=== PATIENT | male | born 1950 | race Caucasian/White ===

== ENCOUNTER 2018-04-15 04:50 | Inpatient (IN) | payer MEDICARE, BC ==
[2018-04-15] VITALS (28 sets, daily range): BP systolic 98–136; BP diastolic 54–80
[~2018-04-15] VITALS: Ht 177.8 cm; Wt 86.6 kg
--- NOTE | 2018-04-15 04:55 | NUR ---
PT BIBRA FROM [facility] FOR SOB, 85% O2 ON 15L NRB, GIVEN BREATHING TX JUNIOR ART DIRECTOR; PT AAOX3, PT ON MONITOR, PT NOTED SOB, MD AT RT AT BEDSIDE FOR EVAL
--- NOTE | 2018-04-15 05:00 | NUR ---
PT REC'D ON BREATHING TX MASK AT 6LPM. PT APPEARED WITH TACHYCARDIA, TACHYPNEA, AND ACCESSORY MUSCLE USAGE. PT AWAKE AND ALERT AND UNCOMFORTABLE. BS ARE EXPIRATORY WHEEZES THROUGHOUT ALL LUNG SANTOS. PT PLACED ON BIPAP PER MD REQUEST ON NOTED SETTINGS CHARTED. ALARMS ARE SET AND AUDIBLE. BIPAP PLUGGED INTO RED OUTLET. AMBU BAG BEDSIDE. WILL CONTINUE TO MONITOR. ABG TO BE TAKEN IN 30 MINUTES Addendum: 04/15/18 at 0516 by VANDA KINNEY RT Amended: Links added.
[2018-04-15] MEDS ORDERED: ACETAMINOPHEN 650 MG/SUPP.RECT RC ONE ×2 (05:10→05:30)
--- NOTE | 2018-04-15 05:11 | NUR ---
RECTAL TEMP REPORTED TO DR. NAQVI WITH ORDERS TO GIVE TYLENOL MD, GIVEN ORDERED
[2018-04-15] MEDS ORDERED: DILTIAZEM HCL 25 MG IV ONE ×3 (05:12→05:50)
[2018-04-15 05:14] LABS: BASOPHILS % (AUTO) 1.2 % (0.0-2.0); EOSINOPHILS % (AUTO) 0.3 % (0.0-6.0); HEMATOCRIT 34 % (39-51); HEMOGLOBIN 10.7 g/dL (13.5-17.5); LYMPHOCYTES # (AUTO) 49.4 /CMM (0.8-4.8); LYMPHOCYTES % (AUTO) 61.9 % (20.0-44.0); MEAN CORPUSCULAR HGB CONC 32 g/dl (31.0-36.0); MEAN CORPUSCULAR VOLUME 99 fL (80-96); MONOCYTES % (AUTO) 1.2 % (2.0-12.0); NEUTROPHILS # (AUTO) 28.3 /CMM (1.8-8.9); NEUTROPHILS % (AUTO) 35.4 % (43.0-81.0); PLATELET COUNT (AUTO) 108 /CMM (150-450); RED BLOOD CELL COUNT(AUTO) 3.43 MIL/uL (4.5-6.0)
[2018-04-15 05:23] LABS: CALCIUM, SERUM 7.4 mg/dL (8.5-10.1); CARBON DIOXIDE 33 mmol/L (21-32); CHLORIDE 99 mmol/L (98-107); CREATININE 1.5 mg/dL (0.6-1.3); GLUCOSE 285 mg/dL (74-106); POTASSIUM 4.6 mmol/L (3.5-5.1); SODIUM SERUM 139 mmol/L (136-145); UREA NITROGEN, BLOOD 22 mg/dL (7-18)
[2018-04-15] MEDS ORDERED: DILTIAZEM HCL 50 MG IV IV ONE (05:30)
[2018-04-15] MEDS ORDERED: ACETAMINOPHEN 325 MG TABLET PO ONE (05:30)
[2018-04-15] MEDS ORDERED: DILTIAZEM HCL IV 125 MG in IV NS 0.9% 100 ML IV PRN (05:30)
--- NOTE | 2018-04-15 05:30 | NUR ---
BIPAP SETTINGS: RATE OF 16, 15/5 50% O2
--- NOTE | 2018-04-15 05:30 | NUR ---
BLOOD COLLECTED THROUGH PICC LINE AND URINE COLLECTED VIA F/C, SPECIMEN GIVEN TO MANAGER ADMINISTRATIVE.
[2018-04-15 05:33] LABS: WHITE BLOOD COUNT (AUTO) 79.9 K/uL (4.3-11.0)
[2018-04-15 05:37] LABS: ALANINE AMINOTRANSFERASE 22 U/L (12-78); ALBUMIN 2.2 g/dL (3.4-5.0); ALKALINE PHOSPHATASE 253 U/L (46-116); ASPARTATE AMINOTRANSFERASE 37 U/L (15-37); B-TYPE NATRIURETIC PEPTIDE 16280 PG/ML (0-125); BILIRUBIN,DIRECT 0.2 mg/dL (0.0-0.2); BILIRUBIN,TOTAL 0.5 mg/dL (0.2-1.0); TOTAL PROTEIN, SERUM 5.7 g/dL (6.4-8.2)
--- NOTE | 2018-04-15 05:41 | NUR ---
PT STARTED ON CARDIZEM 125MG DRIP, STARTED ON 5MG
[2018-04-15] MEDS ORDERED: AZTREONAM 1 G VIAL ONE (05:58)
[2018-04-15] MEDS ORDERED: AZTREONAM 1 G in IV NS 0.9% 100 ML IV ONE (06:00)
[2018-04-15] MEDS ORDERED: ACETAMINOPHEN 650 MG/SUPP.RECT RC PRN (06:00)
[2018-04-15] MEDS ORDERED: MAGNESIUM HYDROXIDE 30 ML UDC PO PRN (06:00)
[2018-04-15] MEDS ORDERED: MAG HYDROX/AL HYDROX/SIMETH 30 ML UDC PO PRN (06:00)
[2018-04-15] MEDS ORDERED: LEVOFLOXACIN 750 MG /D5W 150ML PIGGYBACK IV ONE (06:00)
[2018-04-15] MEDS ORDERED: ALBUTEROL FS 2.5 MG/3 ML VIAL.NEB NEB PRN (06:00)
[2018-04-15] MEDS ORDERED: ONDANSETRON HCL/PF 4 MG/2 ML VIAL IVP PRN (06:00)
[2018-04-15] MEDS ORDERED: ACETAMINOPHEN 325 MG TABLET PO PRN (06:00)
[2018-04-15 06:05] LABS: ABG BASE EXCESS 9.8 mmol/L; ABG OXYGEN SATURATION 98.7 % (92.0-98.5); ABG PCO2 36.1 mmHg (35.0-45.0); ABG PO2 242.4 mmHg (75.0-100.0); AaDO2 434.5 mmHg; COHb 0.6 % (0.5-1.5); MetHb 0.6 % (0.0-1.5); O2Hb 97.5 % (94.0-97.0); SITE, ABG Right Radial
--- NOTE | 2018-04-15 06:14 | NUR ---
ABG TAKEN AND RESULTS GIVEN TO MD. NO CHANGES MADE, EXCEPT FOR O2 TITRATION TO 50% FIO2. WILL CONTINUE TO MONITOR. Addendum: 04/15/18 at 0614 by VANDA KINNEY RT Amended: Links added.
[2018-04-15 06:26] LABS: BAND % (MANUAL) 9 % (0.0-5.0); BASOPHILS % (MANUAL) 1 % (0.0-2.0); BLASTS, MANUAL % 4 % (0-0); LYMPHOCYTES % (MANUAL) 4 % (16-48); METAMYELOCYTES % 1 % (0-0); MONOCYTES % (MANUAL) 2 % (0-11.0); MYELOCYTES % 1 % (0-0); NEUTROPHILS % (MANUAL) 31 (42-76); PROMYELOCYTES % 28 % (0-0); REACTIVE LYMPHOCYTES 19 % (0-0)
[2018-04-15] MEDS ORDERED: FUROSEMIDE 40 MG/4 ML VIAL IV ONE (06:30)
[2018-04-15] MEDS ORDERED: DEXTROSE 50%-WATER 50 ML DISP.SYRIN IV PRN (06:30)
[2018-04-15] MEDS ORDERED: LEVOFLOXACIN 750 MG /D5W 150ML 150 ML IV ONE (06:58)
[2018-04-15] MEDS ORDERED: FUROSEMIDE 40 MG/4 ML VIAL IV SCH (07:00)
[2018-04-15] MEDS ORDERED: INSU100V27 SQ (07:09)
[2018-04-15] MEDS ORDERED: ASPI-1169 PO (07:09)
[2018-04-15] MEDS ORDERED: INSU100V37 SQ (07:09)
[2018-04-15] MEDS ORDERED: BUDE10.2 INH (07:09)
[2018-04-15] MEDS ORDERED: ACET-868 PO (07:09)
[2018-04-15] MEDS ORDERED: CHOL200026 PO (07:09)
[2018-04-15] MEDS ORDERED: PANT40TA2 PO (07:09)
[2018-04-15] MEDS ORDERED: PITA4TAB PO (07:09)
[2018-04-15] MEDS ORDERED: PARO40TA PO (07:09)
[2018-04-15] MEDS ORDERED: PRED5TAB48 PO (07:09)
[2018-04-15] MEDS ORDERED: ASCO500T9 PO (07:09)
[2018-04-15] MEDS ORDERED: ZINC220T PO (07:09)
[2018-04-15] MEDS ORDERED: FLUC100T8 PO (07:09)
[2018-04-15] MEDS ORDERED: ALLO100T PO (07:09)
[2018-04-15] MEDS ORDERED: MULT-213 PO (07:09)
[2018-04-15] MEDS ORDERED: FURO40TA5 PO (07:09)
[2018-04-15] MEDS ORDERED: CARV25TA2 PO (07:09)
[2018-04-15] MEDS ORDERED: IPRA3AMP23 IH (07:09)
[2018-04-15] MEDS ORDERED: LISI40TA4 PO (07:09)
[2018-04-15] MEDS ORDERED: MYCO500T PO (07:09)
--- NOTE | 2018-04-15 07:37 | NUR ---
REPORT GIVEN TO JACY MACKENZIE FOR CARROL
[2018-04-15] MEDS ORDERED: FUROSEMIDE 40 MG/4 ML VIAL ONE (07:56)
--- NOTE | 2018-04-15 07:57 | NUR ---
RT NOTE RECEIVED PT ON BIPAP. SETTINGS PRESCRIBED. PT AWAKE AND ALERT. PT PLACED ON NC AT 3L. PT TOLERATING WELL. SPO2 94%. HR 113. JACY FERNANDES NOTIFIED. NO SOB NO DISTRESS NOTED. Addendum: 04/15/18 at 0759 by PAULIE WHITTINGTON RT Amended: Links added.
--- NOTE | 2018-04-15 08:00 | NUR ---
PROVINCE ARCHIVIST ADMITTING NOTES: RECEIVED PT FROM ER NURSE IN STABLE CONDITION. PT IS A/O X3 WITH PERIODS OF CONFUSION. NO SOB OR ACUTE SIGNS OF DISTRESS NOTED. BREATHING IS EVEN AND UNLABORED. PT PLACED ON 2L VIA NC AND SATING WELL AT 98%. RIGHT UPPER ARM PICC LINE NOTED TO BE PATENT AND INTACT. CARDIZEM CURRENTLY INFUSING FROM ER. WILL D/C AND BEGIN AMIO DRIP. ODEN CATHETER NOTED TO BE PATENT AND DRAINING CLEAR YELLOW URINE. NO BELONGINGS NOTED WITH PT AT THIS TIME. BED IN LOW LOCKED POSITION, SIDE RAILS UP X2, CALL LIGHT WITHIN REACH. WILL CONTINUE TO MONITOR AND BEGIN ADMISSION PROCESS
--- NOTE | 2018-04-15 08:08 | NUR ---
PT CURRENTLY SINUS TACH ON THE TELE MONITOR WITH A HR OF 103
[2018-04-15 08:53] LABS: THYROID STIMULATING HORMONE 29.443 uIU/mL (0.358-3.74)
[2018-04-15] MEDS ORDERED: AMIODARONE 900 MG in IV D5W 500 ML IV PRN (09:00)
[2018-04-15] MEDS ORDERED: AMIODARONE 150 MG in IV D5W 100 ML IV ONE (09:00)
[2018-04-15] MEDS ORDERED: PANTOPRAZOLE 40 MG VIAL IV SCH (09:00)
[2018-04-15 09:27] LABS: ABG BASE EXCESS 9.9 mmol/L; ABG OXYGEN SATURATION 92.2 % (92.0-98.5); ABG PCO2 46.4 mmHg (35.0-45.0); ABG PH 7.487 (7.350-7.450); ABG PO2 67.8 mmHg (75.0-100.0); AaDO2 106.1 mmHg; COHb 0.9 % (0.5-1.5); MetHb 0.8 % (0.0-1.5); O2Hb 90.6 % (94.0-97.0); SITE, ABG Right Radial; VENT MODE, BG 3LNC
[2018-04-15 10:03] LABS: PHOSPHORUS 3.6 mg/dL (2.5-4.9)
[2018-04-15 10:15] LABS: MAGNESIUM 1.3 mg/dL (1.8-2.4)
[2018-04-15] MEDS ORDERED: AMIODARONE 900 MG in IV D5W 482 ML IV PRN (10:30)
[2018-04-15] MEDS: IPRATROPIUM NEB FS 0.5 MG/2.5 ML AMPUL.NEB NEB SCH ×4 (11:07→23:49)
--- NOTE | 2018-04-15 11:40 | NUR ---
COCOA PRESS OPERATOR NOTES: MD MERARY COVARRUBIAS TRAVEL WRITER AT BEDSIDE AND UPDATED ON PT'S CONDITION. SEPSIS PROTOCOL INITIATED. VSS AT THIS TIME.
[2018-04-15] MEDS ORDERED: IV NS 0.9% 1,000 ML IV PRN (12:00)
[2018-04-15] MEDS: FUROSEMIDE 40 MG/4 ML VIAL IV SCH ×3 (12:16→19:50)
[2018-04-15] MEDS: BLOOD SUGAR DIAGNOSTIC 1 EACH STRIP IN SCH ×3 (12:16→23:43)
[2018-04-15] MEDS: NS 0.9% IV PRN ×4 (12:31→20:27)
[2018-04-15] MEDS: INSULIN REGULAR, HUMAN 100 UNIT/ML 3 ML VIAL SQ PRN ×3 (12:32→18:23)
--- NOTE | 2018-04-15 12:50 | NUR ---
STRAIGHT EDGER NOTES: CRITICAL BS PT HAS A CRITICAL BS OF 443. CRITICAL VALUE PROTOCOL INITIATED. 10 UNITS OF INSULIN GIVEN, SATISH MADE AWARE. TELEPHONE ORDER GIVEN TO ADMINISTER AN EXTRA 10 UNITS.
[2018-04-15] MEDS ORDERED: AZTREONAM 1 G in IV NS 0.9% 100 ML IV SCH (13:00)
--- NOTE | 2018-04-15 13:49 | NUR ---
RADIO TALK SHOW HOST NOTES: CODE STATUS PT'S PERSONAL BLOCKER AND CUTTER CONTACT LENS ASHLIE AT BEDSIDE. PER CM, PT HAS A POLST AND WISHES TO BE DNR/DNI. POLST FORM TO BE FAXED TO UNIT. ASHLIE MADE AWARE THAT PT' WILL REMAIN FC UNTIL THEN
[2018-04-15] MEDS ORDERED: MEROPENEM 1 G in IV NS 0.9% 100 ML IV ONE (14:00)
--- NOTE | 2018-04-15 15:20 | NUR ---
RIB MATCHER AND FITTER NOTES: ADVANCED DIRECTIVE A FAX OF PT'S ADVANCED DIRECTIVES RECEIVED HOWEVER UNABLE TO TRANSCRIBE WRITING DUE TO FAX QUALITY. PT'S CONTACTED HOWEVER NO RESPONSE.
[2018-04-15 15:26] LABS: APPEARANCE,URINE SL CLOUDY (CLEAR); BILIRUBIN,URINE NEGATIVE (NEGATIVE); BLOOD, URINE 3+ Ery/uL (NEGATIVE); COLOR,URINE YELLOW (YELLOW); KETONES,URINE NEGATIVE (NEGATIVE); LEUKOCYTE ESTERASE ,URINE NEGATIVE (NEGATIVE); NITRITE, URINE NEGATIVE (NEGATIVE); PROTEIN,URINE NEGATIVE (NEGATIVE); UGLUCOSE 1+ mg/dL (NEGATIVE); UROBILINOGEN,URINE 0.2 EU/dL (0.2)
[2018-04-15 15:29] LABS: ALBUMIN 1.9 g/dL (3.4-5.0); BILIRUBIN,DIRECT 0.2 mg/dL (0.0-0.2); BILIRUBIN,TOTAL 0.4 mg/dL (0.2-1.0); TOTAL PROTEIN, SERUM 4.9 g/dL (6.4-8.2)
[2018-04-15 15:36] LABS: SQUAMOUS EPITHELIAL CELL,UR Rare /HPF (None Seen); WBC,URINE 0-2 /HPF (0-3)
[2018-04-15 15:37] LABS: BACTERIA,URINE RARE /HPF (None Seen)
[2018-04-15] MEDS ORDERED: Z GUARD REMEDY 2 OZ OINT TP PRN (16:00)
--- NOTE | 2018-04-15 16:00 | NUR ---
BRICK UNLOADER TENDER NOTES: CRITICAL LACTIC (2.6) PT HAS A CRITICAL LACTIC ACID OF 2.6. SATISH DRIER TRANSFER CAR OPERATOR MADE AWARE. PT RECEIVED IV BOLUS. NO NEW ORDERS AT THIS TIME. VSS
[2018-04-15] MEDS: Magnesium 1GM/D5W 100ML PREMIX 100 ML IV SCH ×2 (18:24→19:47)
[2018-04-15] MEDS ORDERED: Magnesium 1GM/D5W 100ML PREMIX PIGGYBACK IV ONE (19:00)
--- NOTE | 2018-04-15 19:26 | NUR ---
JAMMER HOOKER CLOSING NOTES: PT REMAINS STABLE. ANOTHER CALLED MADE TO ASHLIE FOR COPY OF ADVANCE DIRECTIVE. NO RESPONSE. ENDORSED TO [place]RA[place] FOR CARROL AND CONTINUED F/U
--- NOTE | 2018-04-15 20:00 | NUR ---
Received patient AAO X 3.VS stable.Respiration even and unlabored.With O2 3LNC on SPO2 100%. SR with BBB per tele monitoring.Amiodarone gtt 0.5 mg/min infusing via AMANDA PICC Line.Site intact. Moderate urine output from lasix.Multiple skin issues dressing C/D/I.Denies pain or any discomfort. Turned and repositioned.Continue monitoring.
[2018-04-15] MEDS: MEROPENEM 1 G in IV NS 0.9% 100 ML IV SCH (21:04)
[2018-04-16] VITALS (29 sets, daily range): BP systolic 87–129; BP diastolic 35–91
--- NOTE | 2018-04-16 | NUR ---
Patient incontinent of soft stools.Perineal care done.Bed bath done and complete linens changed. Turned and repositioned.FSBS 112.Snack given per request.Turned and repositioned.
[2018-04-16] MEDS ORDERED: METRONIDAZOLE 500MG/ NS 100ML 100 ML IV ONE ×2 (01:24→06:14)
[2018-04-16] MEDS: METRONIDAZOLE 500MG/ NS 100ML 500 MG in PREMIX 1 EA IV SCH ×4 (01:28→17:20)
--- NOTE | 2018-04-16 01:30 | NUR ---
Vancocin HCL PO not administered.Not available.Per After Hours PharmacistIVONNE not to mix it just wait for AM pharmacist.Anyway patient is on Flagyl.
[2018-04-16] MEDS: IPRATROPIUM NEB FS 0.5 MG/2.5 ML AMPUL.NEB NEB SCH ×6 (03:18→23:47)
[2018-04-16] MEDS: MEROPENEM 1 G in IV NS 0.9% 100 ML IV SCH ×3 (04:09→21:21)
[2018-04-16 04:49] LABS: BASOPHILS # (AUTO) 0.2 /CMM (0.0-0.2); BASOPHILS % (AUTO) 0.4 % (0.0-2.0); EOSINOPHILS % (AUTO) 0.1 % (0.0-6.0); HEMATOCRIT 27 % (39-51); HEMOGLOBIN 8.8 g/dL (13.5-17.5); LYMPHOCYTES # (AUTO) 21.7 /CMM (0.8-4.8); LYMPHOCYTES % (AUTO) 54.6 % (20.0-44.0); MEAN CORPUSCULAR HGB CONC 32 g/dl (31.0-36.0); MEAN CORPUSCULAR VOLUME 97 fL (80-96); MONOCYTES # (AUTO) 0.4 /CMM (0.1-1.30); MONOCYTES % (AUTO) 1.1 % (2.0-12.0); NEUTROPHILS # (AUTO) 17.4 /CMM (1.8-8.9); NEUTROPHILS % (AUTO) 43.8 % (43.0-81.0); PLATELET COUNT (AUTO) 63 /CMM (150-450); RED BLOOD CELL COUNT(AUTO) 2.81 MIL/uL (4.5-6.0)
[2018-04-16 05:18] LABS: ALBUMIN 1.9 g/dL (3.4-5.0); BILIRUBIN,TOTAL 0.6 mg/dL (0.2-1.0); CALCIUM, SERUM 7.2 mg/dL (8.5-10.1); CREATININE 1.3 mg/dL (0.6-1.3); MAGNESIUM 1.5 mg/dL (1.8-2.4); PHOSPHORUS 2.8 mg/dL (2.5-4.9); POTASSIUM 2.9 mmol/L (3.5-5.1)
[2018-04-16] MEDS: LEVOFLOXACIN 750 MG /D5W 150ML 750 MG in PREMIX 1 EA IV SCH (05:30)
[2018-04-16 05:38] LABS: WHITE BLOOD COUNT (AUTO) 39.7 K/uL (4.3-11.0)
[2018-04-16] MEDS: BLOOD SUGAR DIAGNOSTIC 1 EACH STRIP IN SCH ×3 (05:44→17:20)
[2018-04-16] MEDS: VANCOMYCIN HCL 125 MG/2.5 ML ORAL.SUSP PO SCH ×4 (06:00→17:20)
[2018-04-16 06:03] LABS: BAND % (MANUAL) 12 % (0.0-5.0); LYMPHOCYTES % (MANUAL) 50 % (16-48); MONOCYTES % (MANUAL) 2 % (0-11.0); NEUTROPHILS % (MANUAL) 30 (42-76)
[2018-04-16 06:04] LABS: BLASTS, MANUAL % 6 % (0-0)
[2018-04-16] MEDS ORDERED: POTASSIUM CHLORIDE 20 MEQ TAB.PRT.SR PO ONE (06:30)
--- NOTE | 2018-04-16 06:35 | NUR ---
Patient AM labs resulted.K+ 2.9,WBC 39.7,PLATELET 63 called to DATA ENTRY TECHNICIANKYAW with orders and carried out.Patient resting in no acute distress.FSBS monitored Q 6 hrs results WNL.Will endorse to day shift RN for continuity of care.
--- NOTE | 2018-04-16 08:22 | NUR ---
received pt from shift engineer, a/o x4, SR, on 3L 02, sat well, lungs congested, no edema, tolerates diet, f/c good output, v/s stable, no pain, pt turned and repositioned.
[2018-04-16] MEDS: FUROSEMIDE 40 MG/4 ML VIAL IV SCH ×3 (08:46→16:39)
[2018-04-16] MEDS: Magnesium 1GM/D5W 100ML PREMIX 100 ML IV SCH ×2 (08:46→10:05)
[2018-04-16] MEDS: INSULIN REGULAR, HUMAN 100 UNIT/ML 3 ML VIAL SQ PRN ×2 (12:05→17:28)
[2018-04-16] MEDS: GLUCERNA SHAKE 237 ML CAN PO SCH ×2 (15:51→16:42)
--- NOTE | 2018-04-16 16:26 | NUR ---
pt is resting in the bed, v/s stable, no pain, pt cleaned, changed and repositioned q2hrs.
[2018-04-16] MEDS: SERTRALINE HCL 25 MG TABLET PO SCH (16:39)
[2018-04-16] MEDS: MEGESTROL ACETATE 40 MG TABLET PO SCH (16:39)
--- NOTE | 2018-04-16 20:00 | NUR ---
phillip rn notes received pts and report from arboriculture teacher theodore , pts on 3 liters 0f 02 via nc tolerating well on monitor sr sating 98%all needs attended too call light within reach v/s stable afebrile , pts is alert orientedx4 with f/c intact and patent with dakota piccline intact and patent,no sob no distress noted , due meds given as ordered kept pts clean dry and comportable.will continue to monitor pts.
--- NOTE | 2018-04-16 22:00 | NUR ---
phillip rn notes pts on contact isolation , precautionary measures observed at all times .pts on rectal tube intact and patent .due iv atb given as ordered no ase noted.
[2018-04-17] VITALS (7 sets, daily range): BP systolic 112–131; BP diastolic 57–75
--- NOTE | 2018-04-17 | NUR ---
phillip rn notes blood sugar for 12mn is 179mg/dl 3 units of insulin given per sliding scale , will check blood sugar again ay 6am
[2018-04-17] MEDS: VANCOMYCIN HCL 125 MG/2.5 ML ORAL.SUSP PO SCH ×4 (00:34→17:49)
[2018-04-17] MEDS: METRONIDAZOLE 500MG/ NS 100ML 500 MG in PREMIX 1 EA IV SCH ×4 (00:35→17:49)
[2018-04-17] MEDS: BLOOD SUGAR DIAGNOSTIC 1 EACH STRIP IN SCH ×4 (00:52→17:44)
[2018-04-17] MEDS: INSULIN REGULAR, HUMAN 100 UNIT/ML 3 ML VIAL SQ PRN ×3 (01:04→12:18)
[2018-04-17] MEDS: IPRATROPIUM NEB FS 0.5 MG/2.5 ML AMPUL.NEB NEB SCH ×6 (03:25→23:54)
[2018-04-17] MEDS: MEROPENEM 1 G in IV NS 0.9% 100 ML IV SCH ×3 (04:52→22:02)
[2018-04-17] MEDS: LEVOFLOXACIN 750 MG /D5W 150ML 750 MG in PREMIX 1 EA IV SCH (06:08)
[2018-04-17 06:43] LABS: BASOPHILS % (AUTO) 0.2 % (0.0-2.0); HEMATOCRIT 25 % (39-51); HEMOGLOBIN 8.3 g/dL (13.5-17.5); LYMPHOCYTES % (AUTO) 41.6 % (20.0-44.0); MEAN CORPUSCULAR HGB CONC 33 g/dl (31.0-36.0); MEAN CORPUSCULAR VOLUME 96 fL (80-96); MONOCYTES # (AUTO) 0.3 /CMM (0.1-1.30); MONOCYTES % (AUTO) 1.6 % (2.0-12.0); NEUTROPHILS # (AUTO) 12.3 /CMM (1.8-8.9); NEUTROPHILS % (AUTO) 56.6 % (43.0-81.0); RED BLOOD CELL COUNT(AUTO) 2.61 MIL/uL (4.5-6.0); WHITE BLOOD COUNT (AUTO) 21.7 K/uL (4.3-11.0)
[2018-04-17 06:57] LABS: PLATELET COUNT (AUTO) 48 /CMM (150-450)
--- NOTE | 2018-04-17 07:02 | NUR ---
phillip rn notes blood sugar at 6am is 129mg/dl no coverage given per sliding scale , pts remains on 3liters via nc no shalom noted will endorse to rn day shift for continuity of care.recieved critical labs plateletes =48 md made aware awaiting for response
[2018-04-17 07:24] LABS: ALBUMIN 1.7 g/dL (3.4-5.0); BILIRUBIN,TOTAL 0.5 mg/dL (0.2-1.0); CREATININE 1.4 mg/dL (0.6-1.3); MAGNESIUM 1.7 mg/dL (1.8-2.4); TOTAL PROTEIN, SERUM 4.8 g/dL (6.4-8.2)
[2018-04-17 07:35] LABS: POTASSIUM 2.8 mmol/L (3.5-5.1)
--- NOTE | 2018-04-17 07:37 | NUR ---
PT REFUSED RESP TX AFTER BEING WOKEN UP. NO S/S OF SOB NOTED. WILL CONT TO MONITOR PT Addendum: 04/17/18 at 0738 by RAYMUNDO FARMER RT Amended: Links added.
[2018-04-17] MEDS: GLUCERNA SHAKE 237 ML CAN PO SCH ×3 (08:00→17:00)
[2018-04-17] MEDS: SERTRALINE HCL 25 MG TABLET PO SCH (08:45)
[2018-04-17] MEDS: MEGESTROL ACETATE 40 MG TABLET PO SCH ×2 (08:45→17:09)
[2018-04-17] MEDS ORDERED: POTASSIUM CHLORIDE 20 MEQ TAB.PRT.SR PO ONE (09:53)
[2018-04-17] MEDS ORDERED: POTASSIUM CHLORIDE 20 MEQ TAB.PRT.SR PO SCH ×2 (10:00→10:20)
[2018-04-17 10:39] LABS: BAND % (MANUAL) 7 % (0.0-5.0); LYMPHOCYTES % (MANUAL) 36 % (16-48); NEUTROPHILS % (MANUAL) 57 (42-76)
[2018-04-17] MEDS: Magnesium 1GM/D5W 100ML PREMIX 100 ML IV SCH ×2 (10:54→12:00)
--- NOTE | 2018-04-17 11:25 | NUR ---
DR APPIAH ORDERED K DUR 20 MEQ Q1 HR X 5 DOSES FOR TOTAL OF 100 MEQ. PT REFUSED TO TAKE ANY PILL, THROW THE FIRST PILL. I SPOKE TO DR APPIAH AND ASK IF WE CAN SWITCH TO K RIDER AND AGRREES TO SWITCH AND GIVE POTASSIUM IV 10MEQ X 10 DOSES FOR TOTAL OF 100MEQ
--- NOTE | 2018-04-17 11:30 | NUR ---
RE: ZEKE CAN PER CHARGE NURSE, PT FAMILY NEEDS TO SUPPLY THIS AND OF THIS MOMENT, NO SUPPLY FROM FAMILY
--- NOTE | 2018-04-17 11:39 | NUR ---
WOUND CARE CONSULT WOUND CARE RECEIVED CONSULT FOR RIGHT ELBOW DECUB, SACRAL AND HEEL REDNESS. WOUND CARE WILL DEFER CONSULT AND ALL TREATMENT PLANS TO PLASTIC SURGICAL TEAM THEY ARE CURRENTLY FOLLOWING THIS PATIENT. PATIENT WITH RICHARD AT 15, ALL PRESSURE ULCER PREVENTION MEASURES ARE NOTED TO BE IN PLACE. WILL SEE PRN.
[2018-04-17] MEDS: POTASSIUM CL. PREMIX PERIPHER. 50 ML IV SCH ×10 (11:50→22:04)
--- NOTE | 2018-04-17 11:58 | NUR ---
PT REFUSED RESP TX AT THIS TIME. JACY VASQUEZ AT BEDSIDE. NO S/S OF SOB NOTED Addendum: 04/17/18 at 1200 by RAYMUNDO FARMER RT Amended: Links added.
[2018-04-17] MEDS ORDERED: POTASSIUM CL. PREMIX PERIPHER. 50 ML IV SCH (12:00)
[2018-04-17] MEDS ORDERED: Potassium Chloride 10 MEQ in IV NS 0.9% 1,000 ML IV PRN (12:00)
[2018-04-17] MEDS ORDERED: POTASSIUM CHLORIDE 10 MEQ/50 ML PREMIXED IVPB FOR PERIPHERAL LINE IV SCH (12:00)
--- NOTE | 2018-04-17 20:00 | NUR ---
phillip rn notes received patient's report from am rn , pt is on 3 liters 0f 02 via nc tolerating well on monitor sr sating 98%. All needs attended at this time ,call light within reach v/s stable afebrile , pt is alert orientedx4 with f/c intact and patent with dakota piccline intact and patent,no sob no distress noted at this time. No complaint of pain at this time . will continue to monitor patient closely.
[2018-04-18] VITALS: BP_SYST 109; BP_SYST 125; BP_DIAS 47; BP_DIAS 72
--- NOTE | 2018-04-18 | NUR ---
RN NOTES patient's report is given to Lexa Biggs as transfer of patient care , patient is A &O X 3. Resting in bed, With O2 3LNC on SPO2 99%. SR with HR 83per tele monitoring. AMANDA PICC Line is patient and intact. Multiple skin issues dressing C/D/I.Denies pain or any discomfort.Turned and repositioned.
--- NOTE | 2018-04-18 | NUR ---
RN INITIAL NOTES Received from Sommer Lindquist, patient A &O X 3. Resting in bed, With O2 3LNC on SPO2 100%. SR with HR 83per tele monitoring. AMANDA PICC Line S/L. Multiple skin issues dressing C/D/I.Denies pain or any discomfort.Turned and repositioned.Will continue to monitoring.
[2018-04-18] MEDS: METRONIDAZOLE 500MG/ NS 100ML 500 MG in PREMIX 1 EA IV SCH ×5 (00:38→23:22)
[2018-04-18] MEDS: VANCOMYCIN HCL 125 MG/2.5 ML ORAL.SUSP PO SCH ×5 (00:40→23:22)
[2018-04-18] MEDS: BLOOD SUGAR DIAGNOSTIC 1 EACH STRIP IN SCH ×5 (00:48→23:23)
[2018-04-18] MEDS: INSULIN REGULAR, HUMAN 100 UNIT/ML 3 ML VIAL SQ PRN ×4 (00:58→23:36)
[2018-04-18] MEDS: IPRATROPIUM NEB FS 0.5 MG/2.5 ML AMPUL.NEB NEB SCH ×6 (03:49→23:14)
[2018-04-18 04:00] VITALS: BP 120/75
[2018-04-18] MEDS: MEROPENEM 1 G in IV NS 0.9% 100 ML IV SCH ×3 (04:31→21:39)
[2018-04-18] MEDS: LEVOFLOXACIN 750 MG /D5W 150ML 750 MG in PREMIX 1 EA IV SCH (05:02)
[2018-04-18 06:21] LABS: BASOPHILS % (AUTO) 0.2 % (0.0-2.0); HEMATOCRIT 25 % (39-51); HEMOGLOBIN 8.1 g/dL (13.5-17.5); LYMPHOCYTES # (AUTO) 3.4 /CMM (0.8-4.8); LYMPHOCYTES % (AUTO) 28.1 % (20.0-44.0); MEAN CORPUSCULAR HGB CONC 33 g/dl (31.0-36.0); MEAN CORPUSCULAR VOLUME 97 fL (80-96); MONOCYTES # (AUTO) 0.3 /CMM (0.1-1.30); MONOCYTES % (AUTO) 2.4 % (2.0-12.0); NEUTROPHILS # (AUTO) 8.3 /CMM (1.8-8.9); NEUTROPHILS % (AUTO) 69.3 % (43.0-81.0); RED BLOOD CELL COUNT(AUTO) 2.55 MIL/uL (4.5-6.0)
--- NOTE | 2018-04-18 06:35 | NUR ---
RN CLOSING NOTE PATIENT ON BED,. ON TELE MONITOR SR HR 80'S. HAS A ODEN CATHETER GRAVITY CLEAR AND YELLOW URINE, HAS A R UPPER ARM PICC S/L. NO SIGNS AND SYMPTOMS OF ANY DISTRESS. WILL ENDORSE TO AM SHIFT
[2018-04-18 06:42] LABS: PLATELET COUNT (AUTO) 40 /CMM (150-450)
[2018-04-18 06:44] LABS: ALBUMIN 1.5 g/dL (3.4-5.0); BILIRUBIN,TOTAL 0.5 mg/dL (0.2-1.0); CALCIUM, SERUM 7.2 mg/dL (8.5-10.1); CREATININE 1.1 mg/dL (0.6-1.3); MAGNESIUM 1.7 mg/dL (1.8-2.4); PHOSPHORUS 3.7 mg/dL (2.5-4.9); POTASSIUM 3.5 mmol/L (3.5-5.1); TOTAL PROTEIN, SERUM 4.7 g/dL (6.4-8.2)
--- NOTE | 2018-04-18 07:20 | NUR ---
RN NOTES PT RECEIVED IN BED RESTING, ON O2 VIA NC NO RESPIRATIONS EVEN AND UNLABORED, DENIES ANY PAIN OR DISCOMFORT AT THIS TIME, ALERT ORIENTED WITH PERIODS OF FORGETFULNESS. IV ACCESS PATENT AND INTACT NO REDNESS OR INFILTRATION NOTED. PATIENT KEPT CLEAN AND DRY AND COMFORTABLE, WILL CONTINUE TO MONITOR
[2018-04-18 08:00] VITALS: BP 126/65
[2018-04-18] MEDS: GLUCERNA SHAKE 237 ML CAN PO SCH ×5 (08:00→18:49)
[2018-04-18 08:50] LABS: BAND % (MANUAL) 1 % (0.0-5.0); LYMPHOCYTES % (MANUAL) 28 % (16-48); MONOCYTES % (MANUAL) 4 % (0-11.0); NEUTROPHILS % (MANUAL) 67 (42-76)
[2018-04-18] MEDS: MEGESTROL ACETATE 40 MG TABLET PO SCH ×3 (08:54→17:18)
[2018-04-18] MEDS: SERTRALINE HCL 25 MG TABLET PO SCH (08:54)
[2018-04-18] MEDS: Magnesium 1GM/D5W 100ML PREMIX 100 ML IV SCH ×2 (10:40→11:32)
[2018-04-18] MEDS: ACETYLCYSTEINE 20% SOLN 800 MG/4 ML VIAL NEB SCH ×3 (15:20→23:14)
[2018-04-18 16:00] VITALS: BP 109/51
--- NOTE | 2018-04-18 19:39 | NUR ---
RN NOTES PT IN BED RESTING, ON O2 VIA NC NO RESPIRATIONS EVEN AND UNLABORED, WITH UPPERAIRWAY CONGESTION ON MULTIPLE BREATHING TREATMENTS. DENIES ANY PAIN OR DISCOMFORT AT THIS TIME, ALERT ORIENTED WITH PERIODS OF FORGETFULNESS. IV ACCESS PATENT AND INTACT NO REDNESS OR INFILTRATION NOTED. PATIENT KEPT CLEAN AND DRY AND COMFORTABLE, WILL CONTINUE TO MONITOR ENDORSED TO NEXT SHIFT FOR CONTINUITY OF CARE Addendum: 04/18/18 at 1948 by TAMMI JAY RN RN NOTES ENDORSED TO NEXT SHIFT FOR CONTINUED ASSESSMENT OF REMOVAL OF CATHETER PT WITH MINIMAL OUT PUT VICE PRESIDENT PHARMACY AWARE
--- NOTE | 2018-04-18 19:45 | NUR ---
MS1 RN NOTES RECEIVED ON BED AWAKE,ALERT X3,BREATHING NON LABORED,RT AT BEDSIDE TO ADMINISTER BREATHING TREATMENT SCHEDULED.ODEN CATH IN PLACE DRAINING YELLOWISH OUTPUT.WITH RIGHT ARM PICC LINE FOR MEDS.NOTED EDEMA +1 ON BOTH LOWER EXTREMITIES.ABLE TO VERBALIZED NEEDS.CALL LIGHT IN REACH,NEEDS ANTICIPATED.
--- NOTE | 2018-04-18 20:00 | NUR ---
MS1 RN NOTES DNR/DNI STATUS.
[2018-04-19] VITALS: BP 108/65
--- NOTE | 2018-04-19 | NUR ---
MS1 RN NOTES ACCU-CHECK BLOOD SUGAR CHECK 198,COVERED WITH HUMULIN R 3 UNITS PER SLIDING SCALE.
[2018-04-19] MEDS: IPRATROPIUM NEB FS 0.5 MG/2.5 ML AMPUL.NEB NEB SCH ×6 (02:39→23:53)
[2018-04-19 04:00] VITALS: BP 108/65
[2018-04-19] MEDS: MEROPENEM 1 G in IV NS 0.9% 100 ML IV SCH ×3 (05:00→21:42)
[2018-04-19] MEDS: BLOOD SUGAR DIAGNOSTIC 1 EACH STRIP IN SCH ×3 (05:18→18:18)
[2018-04-19] MEDS: METRONIDAZOLE 500MG/ NS 100ML 500 MG in PREMIX 1 EA IV SCH ×3 (05:19→18:18)
[2018-04-19] MEDS: INSULIN REGULAR, HUMAN 100 UNIT/ML 3 ML VIAL SQ PRN ×2 (05:25→18:47)
--- NOTE | 2018-04-19 05:30 | NUR ---
MS1 RN NOTES ACCU-CHECK BLOOD SUGAR CHECK 160,COVERED WITH HUMULIN R 2 UNITS PER SLIDING SCALE.
[2018-04-19] MEDS: VANCOMYCIN HCL 125 MG/2.5 ML ORAL.SUSP PO SCH ×3 (06:03→18:18)
[2018-04-19] MEDS: LEVOFLOXACIN 750 MG /D5W 150ML 750 MG in PREMIX 1 EA IV SCH (06:04)
[2018-04-19 06:41] LABS: BASOPHILS % (AUTO) 0.2 % (0.0-2.0); HEMATOCRIT 27 % (39-51); HEMOGLOBIN 8.8 g/dL (13.5-17.5); LYMPHOCYTES # (AUTO) 9.8 /CMM (0.8-4.8); LYMPHOCYTES % (AUTO) 55.7 % (20.0-44.0); MEAN CORPUSCULAR HGB CONC 32 g/dl (31.0-36.0); MEAN CORPUSCULAR VOLUME 98 fL (80-96); MONOCYTES # (AUTO) 0.7 /CMM (0.1-1.30); MONOCYTES % (AUTO) 3.8 % (2.0-12.0); NEUTROPHILS # (AUTO) 7.1 /CMM (1.8-8.9); NEUTROPHILS % (AUTO) 40.3 % (43.0-81.0); WHITE BLOOD COUNT (AUTO) 17.6 K/uL (4.3-11.0)
[2018-04-19 06:49] LABS: PLATELET COUNT (AUTO) 42 /CMM (150-450)
[2018-04-19 06:55] LABS: CALCIUM, SERUM 7.2 mg/dL (8.5-10.1); CREATININE 1.4 mg/dL (0.6-1.3); MAGNESIUM 2.2 mg/dL (1.8-2.4); PHOSPHORUS 3.6 mg/dL (2.5-4.9); POTASSIUM 3.6 mmol/L (3.5-5.1)
--- NOTE | 2018-04-19 07:00 | NUR ---
MS RN Opening Notes Patient asleep, resting in bed. Alert and oriented x3. No complaints of pain at this time. Respirations even and unlabored on 2 L oxygen via nasal cannula, no acute distress noted. Right upper arm PICC line intact, patent and saline locked. Rodríguez catheter in place, intact, patent and draining clear, abhinav urine. Updated patient on current plan of care and safety measures. Patient verbalized understanding. Safety and fall precautions in place: bed in lowest and locked position, side rails up x2, bed alarm on, call light and personal possessions within reach. Patient verbalized understanding. Will continue to monitor and intervene as needed.
--- NOTE | 2018-04-19 07:10 | NUR ---
MS1 RN NOTES CALM AND QUIET THRU OUT SHIFT,MED COMPLIANT,DNR/DNI.MULTIPLE IV ABX TOLERATED WELL.IN NO ACUTE DISTRESS.ENDORSED TO DREW BHAT FOR CARROL
[2018-04-19 07:21] LABS: BAND % (MANUAL) 1 % (0.0-5.0); LYMPHOCYTES % (MANUAL) 50 % (16-48); MONOCYTES % (MANUAL) 4 % (0-11.0); NEUTROPHILS % (MANUAL) 43 (42-76); REACTIVE LYMPHOCYTES 2 % (0-0)
[2018-04-19] MEDS: ACETYLCYSTEINE 20% SOLN 800 MG/4 ML VIAL NEB SCH ×3 (07:38→23:53)
[2018-04-19 08:00] VITALS: BP 113/71
[2018-04-19] MEDS: MEGESTROL ACETATE 40 MG TABLET PO SCH ×2 (08:42→18:18)
[2018-04-19] MEDS: GLUCERNA SHAKE 237 ML CAN PO SCH ×3 (08:42→17:00)
[2018-04-19] MEDS: SERTRALINE HCL 25 MG TABLET PO SCH (08:42)
[2018-04-19 16:00] VITALS: BP 114/69
[2018-04-19 16:14] VITALS: BP 113/71
--- NOTE | 2018-04-19 18:00 | NUR ---
MS RN Closing Notes Patient asleep, resting in bed. Alert and oriented x3, able to make needs known. No complaints of pain at this time. No acute events this shift. Respirations even and unlabored on 2 L oxygen via nasal cannula, no acute distress noted. Right upper arm PICC line intact, patent and saline locked. Rodríguez catheter in place, intact, patent and draining clear, abhinav urine. Updated patient on current plan of care and safety measures. Patient verbalized understanding. Safety and fall precautions in place: bed in lowest and locked position, side rails up x2, bed alarm on, call light and personal possessions within reach. Patient verbalized understanding. Will endorse to JACY Cason for continuity of care.
--- NOTE | 2018-04-19 19:10 | NUR ---
MS/RN NOTES RECEIVED PT. LYING IN BED. PT. IS AWAKE, ALERT AND ORIENTED X3. BREATHING EVEN AND UNLABORED ON 2LPM O2 VIA NC. NO SOB, RESPIRATORY DISTRESS OR COMPLAINTS OF PAIN NOTED AT THIS TIME. PT. WITH RIGHT UPPER ARM PICC PRESENT, PATENT AND INTACT PT. WITH ODEN CATHETER PRESENT, PATENT AND INTACT DRAINING CLEAR APRYL COLORED URINE. SAFETY AND ISOLATION PRECAUTIONS IMPLEMENTED AND IN PLACE. BED LOCKED AND IN LOWEST POSITION, SIDE RAILS UP X2, BED ALARM ON, CALL LIGHT WITHIN REACH, WILL CONTINUE TO MONITOR.
[2018-04-19 20:54] VITALS: BP 119/61
--- NOTE | 2018-04-19 22:00 | NUR ---
MS/RN NOTES PT. REFUSING FULL BODY ASSESSMENT. PT. STATES HE WANTS TO BE LEFT ALONE. WILL CONTINUE TO MONITOR.
--- NOTE | 2018-04-19 23:30 | NUR ---
MS/RN NOTES PT. CONTINUES TO REFUSE FULL BODY ASSESSMENT AND PICTURES. WILL CONTINUE TO MONITOR.
[2018-04-20] MEDS: VANCOMYCIN HCL 125 MG/2.5 ML ORAL.SUSP PO SCH ×4 (00:03→17:17)
[2018-04-20] MEDS: METRONIDAZOLE 500MG/ NS 100ML 500 MG in PREMIX 1 EA IV SCH ×4 (00:03→17:16)
[2018-04-20] MEDS: BLOOD SUGAR DIAGNOSTIC 1 EACH STRIP IN SCH ×4 (00:13→17:16)
[2018-04-20] MEDS: IPRATROPIUM NEB FS 0.5 MG/2.5 ML AMPUL.NEB NEB SCH ×5 (03:26→19:30)
[2018-04-20 04:00] VITALS: BP 98/64
[2018-04-20 04:59] VITALS: BP 98/64
[2018-04-20] MEDS: MEROPENEM 1 G in IV NS 0.9% 100 ML IV SCH ×2 (06:01→12:24)
--- NOTE | 2018-04-20 06:50 | NUR ---
MS/RN NOTES PT. IS LYING IN BED RESTING. BREATHING EVEN AND UNLABORED ON 3LPM O2 VIA NC. NO SOB, RESPIRATORY DISTRESS OR COMPLAINTS OF PAIN NOTED AT THIS TIME. PT. WITH RIGHT UPPER ARM PICC PRESENT, PATENT AND INTACT PT. WITH ODEN CATHETER PRESENT, PATENT AND INTACT DRAINING CLEAR APRYL COLORED URINE. ALL PT. NEEDS MET. PT. REFUSED FULL BODY ASSESSMENT, PICTURES AND TURNING/REPOSITIONING THROUGHOUT SHIFT. SAFETY AND ISOLATION PRECAUTIONS IMPLEMENTED AND IN PLACE. BED LOCKED AND IN LOWEST POSITION, SIDE RAILS UP X2, BED ALARM ON, CALL LIGHT WITHIN REACH, WILL ENDORSE TO DAYSHIFT NURSE FOR CONTINUITY OF CARE.
[2018-04-20 07:08] LABS: BASOPHILS % (AUTO) 0.3 % (0.0-2.0); EOSINOPHILS % (AUTO) 0.1 % (0.0-6.0); HEMATOCRIT 30 % (39-51); HEMOGLOBIN 9.7 g/dL (13.5-17.5); LYMPHOCYTES # (AUTO) 7.6 /CMM (0.8-4.8); LYMPHOCYTES % (AUTO) 44.2 % (20.0-44.0); MEAN CORPUSCULAR HGB CONC 32 g/dl (31.0-36.0); MEAN CORPUSCULAR VOLUME 99 fL (80-96); MONOCYTES % (AUTO) 5.7 % (2.0-12.0); NEUTROPHILS # (AUTO) 8.6 /CMM (1.8-8.9); NEUTROPHILS % (AUTO) 49.7 % (43.0-81.0); RED BLOOD CELL COUNT(AUTO) 3.03 MIL/uL (4.5-6.0); WHITE BLOOD COUNT (AUTO) 17.3 K/uL (4.3-11.0)
--- NOTE | 2018-04-20 07:30 | NUR ---
MS RN OPENING NOTE RECIEVED PT IN BED, SLEEPING AND EASILY AROUSABLE. PT IS A/OX4, DENIES CHEST PAIN, SOB, N/V. BREATHING IS EVEN AND UNLABORED ON 3L NC. NO ACUTE DISTRESS NOTED AT THIS TIME. RIGHT UPPER ARM PICC LINE IS PATENT, CLEAN, DRY AND INTACT. ASPIRATION AND CONTACT PRECAUTIONS MAINTAINED. ALL NEEDS ATTENDED TO. BED IS LOCKED AND IN LOWEST POSITION, SIDE RAILS UP X2, CALL LIGHT AND POSSESSIONS WITHIN REACH.
[2018-04-20] MEDS: LEVOFLOXACIN 750 MG /D5W 150ML 750 MG in PREMIX 1 EA IV SCH (07:37)
[2018-04-20 07:44] LABS: CALCIUM, SERUM 7.2 mg/dL (8.5-10.1); CREATININE 1.7 mg/dL (0.6-1.3); MAGNESIUM 2.1 mg/dL (1.8-2.4); PHOSPHORUS 4.4 mg/dL (2.5-4.9); POTASSIUM 3.9 mmol/L (3.5-5.1)
[2018-04-20] MEDS: ACETYLCYSTEINE 20% SOLN 800 MG/4 ML VIAL NEB SCH ×2 (07:49→15:18)
[2018-04-20 07:51] LABS: PLATELET COUNT (AUTO) 36 /CMM (150-450)
[2018-04-20 08:00] VITALS: BP 109/59
[2018-04-20 08:00] LABS: BAND % (MANUAL) 6 % (0.0-5.0); LYMPHOCYTES % (MANUAL) 25 % (16-48); MONOCYTES % (MANUAL) 9 % (0-11.0); NEUTROPHILS % (MANUAL) 60 (42-76)
[2018-04-20] MEDS: GLUCERNA SHAKE 237 ML CAN PO SCH ×3 (08:00→16:18)
[2018-04-20] MEDS: SERTRALINE HCL 25 MG TABLET PO SCH (09:31)
[2018-04-20] MEDS: MEGESTROL ACETATE 40 MG TABLET PO SCH ×2 (09:31→16:18)
[2018-04-20 12:00] VITALS: BP 97/64
[2018-04-20] MEDS: FUROSEMIDE 40 MG/4 ML VIAL IV SCH ×2 (12:24→16:00)
--- NOTE | 2018-04-20 12:30 | NUR ---
MED/SURG NURSE, patient had a large ant of coffee groound emesis at present time thompson LENTZ was notified and stated that will coming to see him
[2018-04-20] MEDS ORDERED: NUT.237L45 PO (12:54)
[2018-04-20] MEDS ORDERED: INSU100V28 SQ (12:54)
[2018-04-20] MEDS ORDERED: FURO10VI IV (12:54)
[2018-04-20] MEDS ORDERED: ALBUT2 NEB (12:54)
[2018-04-20] MEDS ORDERED: ACET650S11 RC (12:54)
[2018-04-20] MEDS ORDERED: MEGE40TA PO (12:54)
[2018-04-20] MEDS ORDERED: ACET325T53 PO (12:54)
[2018-04-20] MEDS ORDERED: MAG30ORA PO (12:54)
[2018-04-20] MEDS ORDERED: ACET200V4 NEB (12:54)
[2018-04-20] MEDS ORDERED: VANC125C11 PO (12:54)
--- NOTE | 2018-04-20 15:19 | NUR ---
RT PATIENT CURRENTLY REFUSING [facility] TX SAYING HE DOES NOT WANT IT AT THIS TIME. NO RESP DISTRESS AT THIS TIME.
[2018-04-20 16:00] VITALS: BP 99/49
--- NOTE | 2018-04-20 16:00 | NUR ---
MS RN NOTE ATTEMPTED TO CALL LISA LARES AT NUMBER LISTED IN CASE MANAGEMENT NOTE. WENT TO VOICEMAIL THAT IS FULL. INFORMED PT.
--- NOTE | 2018-04-20 18:20 | NUR ---
MS LOUIE PT DISCHARGED PT DISCHARGED TO [facility] VIA AMBULANCE TO [facility]. PT US A/O X4, DENIES CHEST PAIN, SOB, N/V, BREATHING IS EVEN AND UNLABORED ON 3L NC. RIGHT UPPER ARM PICC LINE IS PATENT, CLEAN, DRY AND INTACT. ODEN CATHETER NOTED TO BE DRAINING APRYL, YELLOW URINE. SPOKE WITH MATT AT [facility] WHO VERBALIZED CONFIRMATION OF PT RECEIVED SPOKE WITH BRITTANY FROM [facility] AND CONFIRMED THAT PT WILL ARRIVE AT [facility]) TODAY. REPORT GIVEN TO AMBULANCE STAFF FOR TRANSFER OF CARE. Addendum: 04/27/18 at 0843 by CASSIE AMADOR RN PT REFUSED DISCHARGE WOUND DOCUMENTATION PER PROTOCOL. EDUCATION PROVIDED REGARDING DISCHARGE WOUND DOCUMENTATION. PT STILL REFUSED X3.
[2018-04-22] MEDS ORDERED: LEVOFLOXACIN 750 MG /D5W 150ML 750 MG in PREMIX 1 EA IV SCH (06:00)
== END 2018-04-20 19:00 | disposition hospice, home (50) | DRG 871 ==
LOC: ER 04:52 → ICU 06:42 → TELE-TD 04-16 18:52 → TELE1 04-17 10:24 → MEDSG1 04-18 09:22
PROVIDERS: ADMIT Nurse Practitioner Acute Care; ATTEND Registered Nurse
PROC: 5A09357 Assistance with Respiratory Ventilation, Less than 24 Consecutive Hours, Continuous Positive Airway Pressure (ICD-10-PCS; principal; 2018-04-15)
DX: A41.9 Sepsis, unspecified organism (principal); R53.2 Functional quadriplegia; J96.01 Acute respiratory failure with hypoxia; J18.9 Pneumonia, unspecified organism; G93.41 Metabolic encephalopathy; N17.0 Acute kidney failure with tubular necrosis; J44.0 Chronic obstructive pulmonary disease with (acute) lower respiratory infection; E44.0 Moderate protein-calorie malnutrition; D68.59 Other primary thrombophilia; A04.72 Enterocolitis due to Clostridium difficile, not specified as recurrent; J44.1 Chronic obstructive pulmonary disease with (acute) exacerbation; J98.11 Atelectasis; I13.0 Hypertensive heart and chronic kidney disease with heart failure and stage 1 through stage 4 chronic kidney disease, or unspecified chronic kidney disease; E66.2 Morbid (severe) obesity with alveolar hypoventilation; E87.2 Acidosis; K92.2 Gastrointestinal hemorrhage, unspecified; C91.10 Chronic lymphocytic leukemia of B-cell type not having achieved remission; R65.20 Severe sepsis without septic shock; I48.91 Unspecified atrial fibrillation; D69.6 Thrombocytopenia, unspecified; E03.9 Hypothyroidism, unspecified; E78.5 Hyperlipidemia, unspecified; I50.9 Heart failure, unspecified; Z87.891 Personal history of nicotine dependence; Z92.21 Personal history of antineoplastic chemotherapy; M19.90 Unspecified osteoarthritis, unspecified site; N18.9 Chronic kidney disease, unspecified; E88.09 Other disorders of plasma-protein metabolism, not elsewhere classified; E66.9 Obesity, unspecified; Z68.27 Body mass index [BMI] 27.0-27.9, adult; M48.061 Spinal stenosis, lumbar region without neurogenic claudication; L98.8 Other specified disorders of the skin and subcutaneous tissue; S51.001A Unspecified open wound of right elbow, initial encounter; X58.XXXA Exposure to other specified factors, initial encounter; Y93.9 Activity, unspecified; Y92.129 Unspecified place in nursing home as the place of occurrence of the external cause; Z85.72 Personal history of non-Hodgkin lymphomas; Z79.4 Long term (current) use of insulin; D64.9 Anemia, unspecified; G62.9 Polyneuropathy, unspecified; M48.02 Spinal stenosis, cervical region; Z66 Do not resuscitate; M51.26 Other intervertebral disc displacement, lumbar region
CPT/HCPCS: 36415; 36600; 71045-TC; 80048-TC; 80053-TC; 80061-TC; 80076-TC; 81000-TC; 82728-TC; 82803-TC; 82962-TC; 83540-TC; 83605-TC; 83735-TC; 83880; 84100-TC; 84439-TC; 84443-TC; 84484-TC; 85025-TC; 85730-TC; 87040-TC; 87070-TC; 87081-TC; 93307-TC; 93970-TC; 94799-TC; A4216; A6253; A6402; A6403; C9113; G0378; J0282; J1815; J1940; J1956; J2185; J3475; J3480; J3490; J7030; J7050; J7060